=== PATIENT | female | born 1985 | race Caucasian/White ===

== ENCOUNTER 2018-08-20 18:14 | Emergency (ER) | payer OTHER ==
[~2018-08-20] VITALS: Ht 163.8 cm; Wt 128.8 kg
[2018-08-20 18:19] VITALS: BP 144/92
--- NOTE | 2018-08-20 18:30 | NUR ---
PT TO AMB TO ER BED 12
--- NOTE | 2018-08-20 18:40 | NUR ---
32 YO/F BIB RELATIVE WITH CHIEF C/O PRODUCTIVE COUGH X 3 WEEKS. -N/V/D. AFEBRILE. PMH: BLOOD CLOTS IN THE LEG.
[2018-08-20 21:40] VITALS: BP 138/91
--- NOTE | 2018-08-20 21:40 | NUR ---
Patient discharged with v/s stable. Written and verbal after care instructions given and explained. Patient alert, oriented and verbalized understanding of instructions. Ambulatory with steady gait. All questions addressed prior to discharge. ID band removed. Patient advised to follow up with PMD. Rx of PROMETHAZINE DM AND PREDNISONE given. Patient educated on indication of medication including possible reaction and side effects. Opportunity to ask questions provided and answered.
== END 2018-08-20 21:48 | disposition home or self-care (01) ==
LOC: MED 18:14
DX: R05 Cough (principal); R06.02 Shortness of breath; R09.89 Other specified symptoms and signs involving the circulatory and respiratory systems
CPT/HCPCS: 71045; 99283; Q0092

== ENCOUNTER 2019-04-08 13:50 | Emergency (ER) | payer BC, OTHER ==
[~2019-04-08] VITALS: Ht 157.5 cm; Wt 108.9 kg
--- NOTE | 2019-04-08 13:53 | NUR ---
PT AMBULATED TO BED 07.
[2019-04-08 14:00] VITALS: BP 152/97
--- NOTE | 2019-04-08 14:04 | NUR ---
33/F WITH HX OF DVT C/O INTERMITTENT LEFT STERNAL CP RADIATING TO THE BACK SINCE 10:30AM TODAY. WAS SITTING DOWN WHEN IT STARTED. TOOK A ZANTAC WHICH DID NOT HELP. EACH EPISODE LASTS FOR 5 MINUTES. RATED 8/10 NOW, DESCRIBED "DEEP HEARTBURN SENSATION". WORSE WHEN SITTING DOWN, BETTER WHEN WALKING. DENIES SOB, N/V, FEVER, DIAPHORESIS. NOT ON BLOOD THINNERS. HX- DVT
--- NOTE | 2019-04-08 14:07 | NUR ---
DR. SHEPHERD EVALUATING PT AT BEDSIDE.
--- NOTE | 2019-04-08 14:09 | NUR ---
EMT AT BEDSIDE FOR EKG.
--- NOTE | 2019-04-08 14:20 | NUR ---
CXR AT BEDSIDE.
[2019-04-08 15:00] LABS: BASOPHILS % (AUTO) 0.4 % (0.0-2.0); EOSINOPHILS # (AUTO) 0.3 K/uL (0-0.4); EOSINOPHILS % (AUTO) 2.3 % (0.0-4.0); HEMATOCRIT 39.1 % (36-48); HEMOGLOBIN 12.7 g/dL (12.0-16.0); LYMPHOCYTES # (AUTO) 2.9 K/uL (2.5-16.5); LYMPHOCYTES % (AUTO) 23.1 % (20.5-51.1); MEAN CORPUSCULAR HEMOGLOBIN 28 pg (27-31); MEAN CORPUSCULAR HGB CONC 32 g/dL (33-37); MONOCYTES # (AUTO) 0.6 K/uL (0.8-1.0); NEUTROPHILS # (AUTO) 8.6 K/uL (1.8-7.7); NEUTROPHILS % (AUTO) 69.2 % (42.2-75.2); PLATELET COUNT (AUTO) 309 K/uL (140-450); RED CELL DISTRIBUTION WIDTH 14.4 % (11.6-13.7); WHITE BLOOD COUNT (AUTO) 12.5 K/uL (4.8-10.8)
[2019-04-08 15:16] LABS: ALBUMIN 3.5 g/dL (3.4-5.0); ANION GAP 11.4 (8-16); CARBON DIOXIDE 26.9 mmol/L (21-32); CREATININE 0.9 mg/dL (0.6-1.3); POTASSIUM 4.3 mmol/L (3.5-5.1); TOTAL BILIRUBIN 0.3 mg/dL (0.0-1.0)
[2019-04-08] MEDS: ALUMINUM HYD/MAG/SIMETHICONE 30 ML UDC PO ONE (16:10)
--- NOTE | 2019-04-08 17:06 | NUR ---
Patient discharged with v/s stable. Written and verbal after care instructions given and explained. Patient verbalized understanding. Ambulatory with steady gait. All questions addressed prior to discharge. Advised to follow up with PMD.
[2019-04-08 17:07] VITALS: BP 114/48
== END 2019-04-08 17:06 | disposition home or self-care (01) ==
LOC: MED 13:50
DX: R07.89 Other chest pain (principal); K21.9 Gastro-esophageal reflux disease without esophagitis; Z86.718 Personal history of other venous thrombosis and embolism
CPT/HCPCS: 36415; 71045; 80053; 83880; 84484; 85025; 85379; 93005; 99284; Q0092

== ENCOUNTER 2019-05-18 16:37 | Emergency (ER) | payer BC ==
[~2019-05-18] VITALS: Ht 162.6 cm; Wt 127.0 kg
[2019-05-18 16:58] VITALS: BP 148/82
--- NOTE | 2019-05-18 17:25 | NUR ---
33 Y/F BIB SELF FOR NAUSEA. NAUSEA BEGAN 2200 YESTERDAY AFTER PATIENT SELF MEDICATED WITH IBUPROFEN 400MG FOR HEADACHE. PT REPORTS 4/10 THROBBING FITZGERALD, NONRADIATING. NKDA, PT DENIES ALLERGIES TO MOTRIN, AND HAS TAKEN IT BEFORE WITH NO PREVIOUS REACTIONS. PATIENT REPORTS DIZZINESS, FATIGUE, WAS DIAPHORETIC LAST NIGHT. DENIES SOB OR CP. ABDOMEN SOFT AND NONDISTENDED. BOWEL SOUNDS PRESENT IN ALL FOR QUADRANTS. REPORTS HX OF BLOOD CLOTS NKDA NO HOME MEDICATIONS
[2019-05-18] MEDS ORDERED: ONDANSETRON 4 MG ODT PO ONE (17:50)
[2019-05-18 18:26] LABS: BASOPHILS % (AUTO) 0.1 % (0.0-2.0); EOSINOPHILS # (AUTO) 0.1 K/uL (0-0.4); EOSINOPHILS % (AUTO) 1.2 % (0.0-4.0); HEMATOCRIT 37.6 % (36-48); HEMOGLOBIN 12.5 g/dL (12.0-16.0); LYMPHOCYTES # (AUTO) 0.7 K/uL (2.5-16.5); LYMPHOCYTES % (AUTO) 9.2 % (20.5-51.1); MEAN CORPUSCULAR HEMOGLOBIN 29 pg (27-31); MEAN CORPUSCULAR HGB CONC 33 g/dL (33-37); MEAN CORPUSCULAR VOLUME 86.7 fL (80-94); MONOCYTES # (AUTO) 0.3 K/uL (0.8-1.0); MONOCYTES % (AUTO) 4.2 % (1.7-9.3); NEUTROPHILS # (AUTO) 6.9 K/uL (1.8-7.7); NEUTROPHILS % (AUTO) 85.3 % (42.2-75.2); PLATELET COUNT (AUTO) 298 K/uL (140-450); RED BLOOD CELL COUNT(AUTO) 4.33 MIL/uL (4.20-5.40); RED CELL DISTRIBUTION WIDTH 14.2 % (11.6-13.7); WHITE BLOOD COUNT (AUTO) 8.1 K/uL (4.8-10.8)
[2019-05-18 18:43] LABS: ANION GAP 14.9 (8-16); CARBON DIOXIDE 26.9 mmol/L (21-32); CREATININE 0.8 mg/dL (0.6-1.3); POTASSIUM 3.8 mmol/L (3.5-5.1)
[2019-05-18 18:50] LABS: ALBUMIN 3.6 g/dL (3.4-5.0); TOTAL BILIRUBIN 0.3 mg/dL (0.0-1.0)
[2019-05-18 19:00] LABS: PROTHROMBIN TIME 9.4 secs (10.8-13.4)
[2019-05-18 19:09] LABS: BILIRUBIN,URINE NEGATIVE (NEGATIVE); BLOOD, URINE NEGATIVE (NEGATIVE); COLOR,URINE YELLOW (YELLOW); LEUKOCYTE ESTERASE ,URINE NEGATIVE (NEGATIVE); NITRITE, URINE NEGATIVE (NEGATIVE); PH,URINE 5.5 (5.0-9.0); UGLUCOSE NEGATIVE (NEGATIVE)
[2019-05-18 19:18] LABS: APPEARANCE,URINE CLEAR (CLEAR)
--- NOTE | 2019-05-18 19:25 | NUR ---
Pt RECEIED FROM CARO RN. Transfer of care at this time. PATIENT ALERT AND AWAKE, BREATHING EVEN AND UNLABORED
--- NOTE | 2019-05-18 22:21 | NUR ---
Ultrasound at bedside.
--- NOTE | 2019-05-18 22:41 | NUR ---
PATIENT ALERT AND AWAKE, BREATHING EVEN AND UNLABORED
[2019-05-18] MEDS ORDERED: MECLIZINE 25 MG TAB PO ONE (22:45)
--- NOTE | 2019-05-18 22:46 | NUR ---
PT TAKEN TO CT
[2019-05-18 23:31] VITALS: BP 107/59
--- NOTE | 2019-05-18 23:31 | NUR ---
DISCHARGE DONE BY DR CROSS. Patient discharged with v/s stable. Written and verbal after care instructions ABOUT VERTIGO given and explained. Patient alert, oriented and verbalized understanding of instructions. Ambulatory with steady gait. All questions addressed prior to discharge. ID band removed. Patient advised to follow up with PMD. Rx of ANTIVERT given. Patient educated on indication of medication including possible reaction and side effects. Opportunity to ask questions provided and answered.
== END 2019-05-18 22:31 | disposition home or self-care (01) ==
LOC: MED 16:37
DX: R42 Dizziness and giddiness (principal); R11.0 Nausea; R19.7 Diarrhea, unspecified; K21.9 Gastro-esophageal reflux disease without esophagitis
CPT/HCPCS: 36415; 71045; 71275; 80053; 81003; 81025; 85025; 85379; 85610; 85730; 93005; 93970; 99284; J8597; Q0092; Q0162; Q9967

== ENCOUNTER 2020-11-12 11:51 | Emergency (ER) | payer BC ==
[~2020-11-12] VITALS: Ht 162.6 cm; Wt 123.8 kg
[2020-11-12 11:58] VITALS: BP 131/75
--- NOTE | 2020-11-12 11:58 | NUR ---
Patient ambulated to bed 1. RN evaluating the patient at bedside.
--- NOTE | 2020-11-12 11:58 | NUR ---
PT AMBULATED TO BED 1
--- NOTE | 2020-11-12 12:18 | NUR ---
GERMAN SILVERMAN AT BEDSIDE EVALUATING PT
--- NOTE | 2020-11-12 12:20 | NUR ---
GERMAN Herrera is evaluating the patient at bedside.
[2020-11-12] MEDS ORDERED: CODE118S PO (12:24)
--- NOTE | 2020-11-12 12:27 | NUR ---
35 yo female bib self c/o cough x1 week. Patient was seen at urgent care last week and was prescribed zpack, steroid, and cough medicine. pt reports no improvement in cough. pt also c/o bilateral ear discomfort. Lung sounds clear throughout. SPO2 99% on RA. Patient A&Ox4, respirations even and unlabored. PMH: [id number] ago, Bronchitis NKDA
[2020-11-12 12:44] VITALS: BP 131/75
--- NOTE | 2020-11-12 12:47 | NUR ---
Patient discharged with v/s stable. Written and verbal after care instructions about medications for cough and acute bronchitis given and explained. Patient alert, oriented and verbalized understanding of instructions. Ambulatory with steady gait. All questions addressed prior to discharge. ID band removed. Patient advised to follow up with PMD. Rx of Guaifenesin/codeine given. Patient educated on indication of medication including possible reaction and side effects. Opportunity to ask questions provided and answered.
== END 2020-11-12 12:47 | disposition home or self-care (01) ==
LOC: MED 11:51
DX: J20.9 Acute bronchitis, unspecified (principal); K21.9 Gastro-esophageal reflux disease without esophagitis
CPT/HCPCS: 99283